=== PATIENT | male | born 1995 | race Caucasian/White ===

== ENCOUNTER 2016-06-05 23:18 | Emergency (ER) | payer OTHER ==
[~2016-06-05] VITALS: Ht 182.9 cm; Wt 77.1 kg
[~2016-06-05 23:18] MED LIST: IBUPROFEN 600600 M1 PO; MEDROL DOSPAK21 TAB PO; NAPROSYN500 MG PO; NOHOMEMEDICATIONS; PERCOCET 5-3251 EACH PO; SILVADENE20 GM TP; TRAMADOL 50 MG50 MG PO; ULTRAM 50MG TAB50 MG PO
[2016-06-05] MEDS ORDERED: OXYCODONE HCL 55 MG PO (23:48)
[2016-06-05] MEDS ORDERED: SENNA8.6 MG PO (23:49)
[2016-06-05] MEDS ORDERED: FLEXERIL PO (23:49)
[2016-06-05] MEDS ORDERED: PREDNISONE 10 M10 MG PO (23:50)
[2016-06-05] MEDS ORDERED: GABAPENTIN 100100 MG PO (23:50)
[2016-06-05] MEDS ORDERED: OXYCONTIN10 M1 PO (23:50)
[2016-06-05] MEDS ORDERED: HYDROCODONE-APA1 TA1 PO (23:51)
[2016-06-05 23:53] LABS: ABSOLUTE NEUTROPHILS 10.1 thou/uL (1.4-8.2); BASOPHILS 0.9 % (0.0-2.0); EOSINOPHILS 4.2 % (0.0-3.0); HEMATOCRIT 36.5 % (42.0-52.0); HEMOGLOBIN 12.7 gm/dL (14.0-18.0); LYMPHOCYTES 25.8 % (24.0-44.0); MCH 29.8 pg (26.0-34.0); MCHC 34.8 g/dL (28.0-37.0); MCV 85.7 fL (80.0-100.0); MONOCYTES 6.4 % (1.0-8.0); PLATELET COUNT 570 thou/uL (150-400); POLYS 62.7 % (36.0-66.0); RBC 4.26 mil/uL (4.50-6.00); RDW 12.7 % (10.5-14.5); WBC 16.2 thou/uL (4.0-11.0)
[2016-06-05 23:55] LABS: MANUAL DIFF NO
[2016-06-06] LABS: CALCIUM 9.3 mg/dL (8.5-10.1); CREATININE 0.9 mg/dL (0.7-1.3); POTASSIUM 3.8 mmol/L (3.5-5.1)
[2016-06-06] MEDS ORDERED: COLACE100 MG PO (00:45)
[2016-06-06 01:38] VITALS: BP 99/72
== END 2016-06-06 01:41 | disposition home or self-care (01) ==
LOC: ER 23:18
PROVIDERS: Physician Assistant
DX: K59.00 Constipation, unspecified (principal); R11.2 Nausea with vomiting, unspecified; F41.9 Anxiety disorder, unspecified; F17.210 Nicotine dependence, cigarettes, uncomplicated

== ENCOUNTER 2017-02-05 20:02 | Emergency (ER) | payer OTHER ==
[~2017-02-05] VITALS: Ht 182.9 cm; Wt 79.4 kg
[~2017-02-05 20:02] MED LIST changes: +COLACE100 MG PO; +FLEXERIL PO; +GABAPENTIN 100100 MG PO; +HYDROCODONE-APA1 TA1 PO; +OXYCODONE HCL 55 MG PO; +OXYCONTIN10 M1 PO; +PREDNISONE 10 M10 MG PO; +SENNA8.6 MG PO
[2017-02-05 20:12] VITALS: BP 126/81
[2017-02-05] MEDS ORDERED: ARTIFICIAL TEA1 EACH OPHTHALMIC (20:49)
[2017-02-05] MEDS ORDERED: NEOMYCIN-POLY-7.5 ML OPHTHALMIC (20:49)
== END 2017-02-05 21:00 | disposition home or self-care (01) ==
LOC: ER 20:02
DX: H16.133 Photokeratitis, bilateral (principal); F41.9 Anxiety disorder, unspecified; F17.210 Nicotine dependence, cigarettes, uncomplicated

== ENCOUNTER 2017-11-05 20:06 | Emergency (ER) | payer OTHER ==
[~2017-11-05] VITALS: Ht 182.9 cm; Wt 79.4 kg
[~2017-11-05 20:06] MED LIST changes: +ARTIFICIAL TEA1 EACH OPHTHALMIC; +NEOMYCIN-POLY-7.5 ML OPHTHALMIC
[2017-11-05 21:48] VITALS: BP 133/76
== END 2017-11-05 21:48 | disposition home or self-care (01) ==
LOC: ER 20:06
DX: S91.331A Puncture wound without foreign body, right foot, initial encounter (principal); F17.210 Nicotine dependence, cigarettes, uncomplicated; X58.XXXA Exposure to other specified factors, initial encounter; Y93.89 Activity, other specified; Y92.89 Other specified places as the place of occurrence of the external cause; Y99.8 Other external cause status

== ENCOUNTER 2017-12-25 00:52 | Emergency (ER) | payer OTHER ==
[~2017-12-25] VITALS: Ht 182.9 cm; Wt 79.4 kg
[2017-12-25] MEDS ORDERED: NORCO 7.5-3251 EACH PO (02:09)
[2017-12-25] MEDS ORDERED: OFLOXACIN5 M1 OPHTHALMIC (02:13)
== END 2017-12-25 02:19 | disposition home or self-care (01) ==
LOC: ER 00:52
DX: H16.133 Photokeratitis, bilateral (principal); F17.210 Nicotine dependence, cigarettes, uncomplicated; F41.9 Anxiety disorder, unspecified

== ENCOUNTER 2019-11-30 05:12 | Emergency (ER) | payer OTHER ==
[~2019-11-30] VITALS: Ht 182.9 cm; Wt 79.4 kg
[~2019-11-30 05:12] MED LIST changes: +NORCO 7.5-3251 EACH PO; +OFLOXACIN5 M1 OPHTHALMIC
[2019-11-30 05:14] VITALS: BP 145/87
[2019-11-30] MEDS ORDERED: ADDAPRIN200 MG PO ×2 (05:43→05:44)
[2019-11-30] MEDS ORDERED: NAPROSYN500 MG PO (06:15)
[2019-11-30] MEDS ORDERED: AUGMENTIN 875-1 EACH PO (06:15)
== END 2019-11-30 06:50 | disposition home or self-care (01) ==
LOC: ER 05:12
DX: K08.89 Other specified disorders of teeth and supporting structures (principal); F17.210 Nicotine dependence, cigarettes, uncomplicated; Z79.1 Long term (current) use of non-steroidal anti-inflammatories (NSAID)

== ENCOUNTER 2019-12-12 18:49 | Emergency (ER) | payer OTHER ==
[~2019-12-12] VITALS: Ht 182.9 cm; Wt 79.4 kg
[~2019-12-12 18:49] MED LIST changes: +ADDAPRIN200 MG PO; +AUGMENTIN 875-1 EACH PO
[2019-12-12] MEDS ORDERED: IBU600 MG PO (20:07)
[2019-12-12] MEDS ORDERED: KEFLEX500 M2 PO (20:07)
[2019-12-12] MEDS ORDERED: NORCO 5-325 TA1 EAC2 PO (20:10)
[2019-12-12 20:38] VITALS: BP 133/68
== END 2019-12-12 20:20 | disposition home or self-care (01) ==
LOC: ER 18:49
DX: S61.214A Laceration without foreign body of right ring finger without damage to nail, initial encounter (principal); S61.216A Laceration without foreign body of right little finger without damage to nail, initial encounter; F41.9 Anxiety disorder, unspecified; Z98.890 Other specified postprocedural states; Z79.2 Long term (current) use of antibiotics; Z79.899 Other long term (current) drug therapy; Z87.891 Personal history of nicotine dependence; W26.0XXA Contact with knife, initial encounter; Y93.89 Activity, other specified; Y92.89 Other specified places as the place of occurrence of the external cause; Y99.8 Other external cause status